=== PATIENT | male | born 1980 | race Caucasian/White ===

== ENCOUNTER 2018-09-03 07:33 | Emergency (ER) | payer OTHER ==
[2018-09-03 07:42] VITALS: BP 152/83
--- NOTE | 2018-09-03 07:45 | UC ---
General HPI - HPI Summary HPI Summary: Pleasant 38 yo gentleman c/o R low back pain, radiating to R leg, beginning appro 02:30am this morning. No fever / chills / recent injury. No rash. No sob /cp. + hx remote injury approx 18 yrs ago, herniated discs L3-5, during a team event. Did not require surgery, but did receive an epidural injection at the time. Did well over the next several years with phys tx. Indeed did not have pain until this morning. Yesterday, drove from [facility] Friday (today is ). Pain starts at R low back, and radiates down the back of the leg extending to the foot. Denies b/b incontinence, had both bm and urinated ok this am. Notes + dysesthesia in parts of foot and lower leg. Also - pmh - upper back weakness / postural issues, receives pt and chiropractor care. No new issues in the last couple days. - History of Current Complaint Chief Complaint: UCBackPain Stated Complaint: LEG PAIN Time Seen by Provider: 09/03/18 07:44 Hx Obtained From: Patient Pain Intensity: 9 - Allergy/Home Medications Allergies/Adverse Reactions: Allergies Allergy/AdvReac Type Severity Reaction Status Date / Time No Known Allergies Allergy Verified 09/03/18 07:42 Home Medications: Home Medications ValACYclovir (*) [Valtrex 500 mg (*)] 1 tab PO DAILY 09/03/18 [History Confirmed 09/03/18] PMH/Surg Hx/FS Hx/Imm Hx Previously Healthy: Yes - see hpi - Surgical History Surgical History: None - Family History Known Family History: Positive: None - Social History Alcohol Use: Occasionally Substance Use Type: None Smoking Status (MU): Never Smoked Tobacco Review of Systems All Other Systems Reviewed And Are Negative: Yes Constitutional: Positive: Negative Skin: Positive: Negative Eyes: Positive: Negative ENT: Positive: Negative Respiratory: Positive: Negative Cardiovascular: Positive: Negative Gastrointestinal: Positive: Negative Genitourinary: Positive: Negative Motor: Positive: Other - see hpi Neurovascular: Positive: Other - see hpi Musculoskeletal: Positive: Other: - see hpi Neurological: Positive: Other Is Patient Immunocompromised?: No Physical Exam Triage Information Reviewed: Yes Appearance: Well-Nourished - healthy. nad. but uncomfortable with movement. Vital Signs: Initial Vital Signs Temp 98.7 F 09/03/18 07:39 Pulse 82 09/03/18 07:39 Resp 17 09/03/18 07:39 BP 152/83 09/03/18 07:39 Pulse Ox 99 09/03/18 07:39 Vital Signs Reviewed: Yes Eye Exam: Normal ENT Exam: Normal Neck exam: Normal Respiratory Exam: Normal Cardiovascular Exam: Normal Abdominal Exam: Normal Abdomen Description: Positive: Nontender Musculoskeletal Exam: Other - Tender R low back lat lower lumbar region. + spasm muscle. Tenderness extends post buttock, post thigh, distal foot. Gait steady, without drop. +dyesthesia (+ sens LT, just dysesthetic L4-5) over L 4- 5 dermatome. strength good 5/5 x BLE, including great toes. Color good ble. Neurological Exam: Other - see [facility] [place] [facility] Exam: Normal - conversing easily and appropriately Skin Exam: Normal - no visible or reported rash Course/Dx - Course Course Of Treatment: Reviewed with pt coa / tx plan. We do not have CT / MRI imaging here in [facility]. Reviewed xray reports Offered transfer to ED, but he declines. Will obtain xrays, nsaid inj, start medrol dose pack. Narcotic talk unremark. ISTOP attempted, but system error. Rx medrol dose pack, norco. F/u PCP (he will call today) and orthopedist in [facility] upon return home. Referral to orthopedics here, in case he does not return to [facility] (has a 2nd home here in [place]) . Questions as posed answered to the best of my ability. At disharge - encouraged go to ED, olvin if worse / no better. He declines. But will consider it. - Diagnoses Provider Diagnosis: Back pain at L4-L5 level, Dysesthesia, Degenerative disc disease, lumbar Discharge - Sign-Out/Discharge Documenting (check all that apply): Patient Departure All imaging exams completed and their final reports reviewed: Yes - Discharge Plan Condition: Stable Disposition: HOME Prescriptions: HYDROcodone/ACETAMIN 5-325 MG* [[place] 5-325 TAB*] 2 tab PO Q6H PRN #24 tab MDD 8 PRN Reason: Pain methylPREDNISolone [Medrol] 4 mg PO DAILY #1 tab.ds.pk Patient Education Materials: Lumbar Radiculopathy (ED), Back Pain (ED), Degenerative Disc Disease (ED) Referrals: No Primary Care Phys,NOPCP [Primary Care Provider] - Additional Instructions: Follow up with your primary care physician -call today for appointment early next week. Follow up with orthopedic surgeon (air cargo specialist supervisor if possible). Call for next available appointment. Please call 911 and go to the Emergency Department for any worse or new problems. - Billing Disposition and Condition Condition: STABLE Disposition: Home
[2018-09-03] MEDS ORDERED: Ketorolac INJ* 60 MG/2 ML VIAL IM ONE (08:09)
== END 2018-09-03 09:00 | disposition home or self-care (01) ==
LOC: UCEAST 07:33
DX: M54.5 Low back pain (principal); M51.36 Other intervertebral disc degeneration, lumbar region; R20.8 Other disturbances of skin sensation
CPT/HCPCS: 72110; 96372; 99202; G0463; J1885

== ENCOUNTER 2018-09-04 11:12 | Emergency (ER) | payer OTHER ==
[2018-09-04] MEDS ORDERED: Orphenadrine Citrate IV* 30 MG/ML 2 ML VIAL IV ONE (11:38)
[2018-09-04] MEDS ORDERED: Dexamethasone IV* 4 MG/ML 5 ML VIAL (20 MG) IVPB ONE (11:38)
[2018-09-04] MEDS ORDERED: Morphine 4 MG/ML VIAL (1 ml) 4 MG/ML VIAL IV ONE (11:38)
[2018-09-04] MEDS ORDERED: Ondansetron INJ* 2 MG/ML VIAL IV ONE (11:38)
[2018-09-04] MEDS ORDERED: Ketorolac INJ* 30 MG/ML 1 ML VIAL IV PUSH ONE (11:38)
--- NOTE | 2018-09-04 11:40 | ED ---
Back Pain - HPI Summary HPI Summary: This pt is a 29 y/o male presenting to [facility] c/o right buttocks pain radiating down his right leg since 3 days ago. Pt reports he woke up in the middle of the night with pain 3 days ago. He states he had just drove from the city but notes he does this every weekend. He notes he has numbness in his right leg. Denies weakness in leg, urinary or bowel incontinence, abd pain. He had a normal bowel movement and urinated normally today. Pt currently rates his pain 8.5-9 out of 10 in severity. Hx of herniated discs L4, L5 that happened 20 years ago and has had intermittent pain since then restless leg. PMHx: restless leg, type 2 genital herpes. He was seen ambulating from triage to the ED room without any difficulties. Pt went to Urgent Care yesterday and was given steroids and Colstrip. He notes he has taken Colstrip without any relief of pain. - History of Current Complaint Chief Complaint: EDBackInjuryPain Stated Complaint: SCIATICA NERVE ISSUE PER PT Hx Obtained From: Patient Onset/Duration: Lasting Days, Still Present Onset/Duration: Started Days Ago, Atraumatic, Still Present Timing: Lasting Days Back Pain Location: Is Discrete @ - right buttocks, Radiates To - right leg Severity Currently: Severe Pain Intensity: 9 Pain Scale Used: 0-10 Numeric Aggravating Symptom(s): Nothing Alleviating Symptom(s): Nothing Associated Signs And Symptoms: Positive: Numbness - right leg. Negative: Fever , Weakness, Abdominal Pain, Bladder Incontinence, Bowel Incontinence - Allergies/Home Medications Allergies/Adverse Reactions: Allergies Allergy/AdvReac Type Severity Reaction Status Date / Time No Known Allergies Allergy Verified 09/03/18 07:42 PMH/Surg Hx/FS Hx/Imm Hx Endocrine/Hematology History: Denies: Hx Diabetes Cardiovascular History: Denies: Hx Hypertension Musculoskeletal History: Reports: Other Musculoskeletal History - L4, L5 herniated discs - Surgical History Surgical History: None Infectious Disease History: No Infectious Disease History: Denies: Traveled Outside the [place] in Last 30 Days - Family History Known Family History: Negative: Cardiac Disease, Hypertension, Diabetes Family History: cancer - Social History Alcohol Use: Occasionally Substance Use Type: Reports: None Smoking Status (MU): Former Smoker Review of Systems Negative: Fever Cardiovascular: Negative Respiratory: Negative Musculoskeletal: Other - POSITIVE: right buttocks pain radiating down to right leg Positive: Numbness - right leg. Negative: Weakness All Other Systems Reviewed And Are Negative: Yes Physical Exam - Summary Physical Exam Summary: VITAL SIGNS: Reviewed. GENERAL: Patient is a well-developed and nourished male who is lying comfortable in the stretcher. Patient is not in any acute respiratory distress. HEAD AND FACE: No signs of trauma. No ecchymosis, hematomas or skull depressions. No sinus tenderness. EYES: PERRLA, EOMI x 2, No injected conjunctiva, no nystagmus. EARS: Hearing grossly intact. Ear canals and tympanic membranes are within normal limits. MOUTH: Oropharynx within normal limits. NECK: Supple, trachea is midline, no adenopathy, no JVD, no carotid bruit, no c- spine tenderness, neck with full ROM. CHEST: Symmetric, no tenderness at palpation LUNGS: Clear to auscultation bilaterally. No wheezing or crackles. CVS: Regular rate and rhythm, S1 and S2 present, no murmurs or gallops appreciated. ABDOMEN: Soft, non-tender. No signs of distention. No rebound, no guarding, and no masses palpated. Bowel sounds are normal. EXTREMITIES: Decreased sensation on the plantar area of the right foot. Tenderness in the right gluteus, straight leg raise test is positive at 45 degrees. NEURO: Alert and oriented x 3. No acute neurological deficits. Speech is normal and follows commands. SKIN: Dry and warm Triage Information Reviewed: Yes Vital Signs On Initial Exam: Initial Vitals Temp Pulse Resp BP Pulse Ox 96.7 F 85 18 144/109 97 09/04/18 11:15 09/04/18 11:15 09/04/18 11:15 09/04/18 11:15 09/04/18 11:15 Vital Signs Reviewed: Yes Diagnostics - Vital Signs Vital Signs Temp Pulse Resp BP Pulse Ox 09/04/18 11:15 96.7 F 85 18 144/109 97 - Laboratory Lab Statement: Any lab studies that have been ordered have been reviewed, and results considered in the medical decision making process. - Radiology Lower spine XR from Urgent Care on 09/03/18 Radiology Interpretation Completed By: Radiologist Summary of Radiographic Findings: IMPRESSION: Mild degenerative disc disease and osteoarthritis most pronounced along the lower lumbar spine. Dr. Gallo has reviewed this report. Re-Evaluation - Re-Evaluation First Eval Re-Evaluation Time: 14:09 Comment: back pain has resolved Back Pain Course/Dx - Course Assessment/Plan: This pt is a 29 y/o male presenting to [facility] c/o right buttocks pain radiating down his right leg since 3 days ago. Pt reports he woke up in the middle of the night with pain 3 days ago. He states he had just drove from the city but notes he does this every weekend. He notes he has numbness in his right leg. Denies weakness in leg, urinary or bowel incontinence, abd pain. He had a normal bowel movement and urinate normally today. Pt currently rates his pain 8.5-9 out of 10 in severity. Hx of herniated discs L4, L5 that happened 20 years ago and has had intermittent pain since then restless leg. PMHx: restless leg, type 2 genital herpes. He was seen ambulating from triage to the ED room without any difficulties. Pt went to Urgent Care yesterday and was given steroids and Colstrip. He notes he has taken Colstrip without any relief of pain. After the physical exam I have no suspicion for cauda equina, I believe that the patient has an acute sciatic pain. In the ED course the patient was given Decadron, Toradol, morphine, Zofran and Norflex for the pain. X-ray done in the urgent care impression: Mild degenerative disc disease and osteoarthritis most pronounced along the lower lumbar spine. The patient is ambulating in the ED. After the pain medications, patient reports that the symptoms have resolved. I discussed all the findings and test results with the patient. Patient was instructed to return to the emergency room immediately if any of the symptoms return or worsens. Plan of care was discussed with the patient and he understands and agrees. All questions were answered at patient satisfaction. There were no further complaints or concerns. Lung exam before discharge: CTA B/L. Good air exchange. No wheezing or crackles heard. CVS: S1 and S2 present. No murmurs appreciated. Patient is alert and oriented x 3. Patient is hemodynamically stable. Patient will be discharged home with follow up from his PCP in the next 2-3 days. He was given prescriptions for Motrin and Robaxin. - Diagnoses Provider Diagnoses: Back pain Discharge - Sign-Out/Discharge Documenting (check all that apply): Patient Departure - Discharge home Patient Received Moderate/Deep Sedation with Procedure: No - Discharge Plan Condition: Stable Disposition: HOME Prescriptions: Ibuprofen TAB* [Motrin TAB* 800 MG] 800 mg PO Q8H PRN #30 tab PRN Reason: Pain Methocarbamol TAB* [Robaxin 500 MG TAB*] 500 mg PO TID PRN #12 tab PRN Reason: Spasms - Back Patient Education Materials: Back Pain (ED) Referrals: [facility] [Outside] Additional Instructions: FOLLOW UP WITH YOUR PRIMARY CARE PROVIDER IN 2-3 DAYS. RETURN TO THE ED FOR ANY NEW OR WORSENING SYMPTOMS. - Billing Disposition and Condition Condition: STABLE Disposition: Home - Attestation Statements Document Initiated by Scribe: Yes Documenting Scribe: Cassidy Santillan Provider For Whom Tyra is Documenting (Include Credential): Henry Gallo MD Scribe Attestation: Cassidy Rodgers scribed for Henry Gallo MD on 09/04/18 at 2102. Scribe Documentation Reviewed: Yes Provider Attestation: The documentation as recorded by the Cassidy benedict accurately reflects the service I personally performed and the decisions made by , Henry Gallo MD Status of Scribe Document: Viewed
[2018-09-04 14:31] VITALS: BP 110/65
== END 2018-09-04 14:30 | disposition home or self-care (01) ==
LOC: ED 11:12
DX: M54.9 Dorsalgia, unspecified (principal); Z87.891 Personal history of nicotine dependence
CPT/HCPCS: 96374; 96375; 99283; J1100; J1885; J2270; J2360; J2405